=== PATIENT | female | born 1950 | race Caucasian/White ===

== ENCOUNTER 2020-03-08 16:50 | Emergency (ER) | payer MEDICARE, SELFPAY ==
[2020-03-08 17:02] VITALS: BP 132/72; PULSE 75; RESP 20; TEMP 36.2; O2SAT 100
--- NOTE | 2020-03-08 17:07 | ED.URI ---
HPI - URI/Sore Throat General Chief Complaint: Upper Respiratory Infection Stated Complaint: URI Time Seen by Provider: 03/08/20 17:11 Source: patient and RN notes reviewed Mode of arrival: ambulatory Limitations: no limitations History of Present Illness HPI Narrative: 69-year-old female presents with concern for chronic sinus problems. She reports several week to month history of sinus congestion. Reports in the last several days drainage has gotten worse with right-sided facial pain, headache, sneezing, constant rhinorrhea. She denies loss of sense of taste or smell, shortness of breath, fever, sore throat, ear pain. MD elicited complaint: nasal congestion Related Data Home Medications Medication Instructions Recorded Confirmed levothyroxine 25 mcg PO DAILY 04/07/19 03/08/20 pantoprazole 40 mg PO BID 04/07/19 03/08/20 rosuvastatin 10 mg PO DAILY 04/07/19 03/08/20 azelastine 205.5 mcg INTRANASAL DIRECTED 03/08/20 03/08/20 dicyclomine 10 mg PO DAILY 03/08/20 03/08/20 fluticasone propionate 50 mcg INTRANASAL DIRECTED 03/08/20 03/08/20 montelukast 10 mg PO DAILY 03/08/20 03/08/20 Allergies Allergy/AdvReac Type Severity Reaction Status Date / Time niacin Allergy Mild FLUSHING Verified 04/07/19 16:40 codeine AdvReac Unknown Nausea and Verified 04/07/19 16:40 Vomiting Review of Systems Review of Systems: Narrative: CONSTITUTIONAL: Denies malaise, chills, sweats, or fever. EYES: Denies visual changes, redness, or discharge. ENT: Reports rhinorrhea, congestion, sinus pain. Denies otalgia and sore throat. CARDIOVASCULAR: Denies chest pain, palpitations, or edema. RESPIRATORY: Reports cough. Denies dyspnea. GASTROINTESTINAL: Denies abdominal pain, nausea, vomiting, diarrhea SKIN: Denies rash or itching. MUSCULOSKELETAL: Denies myalgia. NEUROLOGIC: Reports headache. All systems reviewed & are unremarkable except as noted in HPI and below PMFSH Past Medical History Medical History (Updated 03/08/20 @ 17:26 by Nivia Orr NP) Fibromyalgia GERD (gastroesophageal reflux disease) Hypercholesterolemia Social History Social History Gender identity (if verbalized by the patient): Female Comments At time of signature, agree with nursing past medical, surgical, social and family history. There is no relevant family history pertinent to the presenting complaint Exam Narrative: Exam Narrative: GENERAL: Well-appearing, well-nourished, and in no acute distress. HEAD: Normocephalic EYES: PERRLA, conjunctivae clear ENT: Nares clear, turbinates edematous and erythematous, copious discharge, sinus tenderness. Mucous membranes moist. TM pearly murphy with dull light reflex bilaterally; no tragal tenderness. Oropharynx mildly erythematous without lesions. Tonsils not enlarged and without exudate, no drooling, no hoarseness, no trismus, uvula midline. NECK: Supple. No lymphadenopathy CHEST: Clear to auscultation, breath sounds equal. No wheezing, rhonchi, rales, or stridor. No respiratory distress, speaks in full sentences. HEART: Regular rate and rhythm. No murmur heard. SKIN: Warm, dry, no rash. NEURO: Alert and oriented x3. PSYCH: Normal mood and affect Course Course Emergency Course: Patient is aware of diagnosis, understands and agrees to treatment plan. Anticipatory guidance given. Patient agrees to follow-up as directed and is aware of reasons to seek care at the emergency department. Portions of this record may have been created with voice recognition software Vital Signs Vital signs: Vital Signs Temperature 97.2 F L 03/08/20 17:02 Pulse Rate 75 03/08/20 17:02 Respiratory Rate 20 03/08/20 17:02 Blood Pressure 132/72 03/08/20 17:02 Pulse Oximetry 100 03/08/20 17:02 Temperature 97.2 F L 03/08/20 17:02 Pulse Rate 75 03/08/20 17:02 Respiratory Rate 20 03/08/20 17:02 Blood Pressure 132/72 03/08/20 17:02 Pulse Oximetry 100 03/08/20 17:02 Reviewed. MDM - URI/Sore Throat
== END 2020-03-08 17:33 | disposition home or self-care (01) ==
PROVIDERS: Emergency Provider Nurse Practitioner; PCP Internal Medicine
DX: J32.9 Chronic sinusitis, unspecified (principal); M79.7 Fibromyalgia; K21.9 Gastro-esophageal reflux disease without esophagitis; E78.00 Pure hypercholesterolemia, unspecified
CPT/HCPCS: 99213; G0463

== ENCOUNTER 2020-10-03 18:55 | Emergency (ER) | payer MEDICARE, SELFPAY ==
--- NOTE | 2020-10-03 18:58 | ED.URI ---
HPI - URI/Sore Throat General Chief Complaint: Upper Respiratory Infection Stated Complaint: Congestion, Eye pain, coughing and sneezing Time Seen by Provider: 10/03/20 19:07 Source: patient and RN notes reviewed Mode of arrival: ambulatory Limitations: no limitations History of Present Illness HPI Narrative: 70-year-old female presents with concern for sinus pain, nasal congestion, eye pain, nasal drainage, postnasal drainage, coughing, sneezing. Reports trying multiple [id number] methods, regular daily allergy and sinus medicines with no relief. Reports general malaise. Reports history of chronic sinus infections. MD elicited complaint: nasal congestion Related Data Home Medications Medication Instructions Recorded Confirmed levothyroxine 25 mcg PO DAILY 04/07/19 10/03/20 pantoprazole 40 mg PO BID 04/07/19 10/03/20 rosuvastatin 10 mg PO DAILY 04/07/19 10/03/20 azelastine 205.5 mcg INTRANASAL DIRECTED 03/08/20 10/03/20 dicyclomine 10 mg PO DAILY 03/08/20 03/08/20 fluticasone propionate 50 mcg INTRANASAL DIRECTED 03/08/20 10/03/20 montelukast 10 mg PO DAILY 03/08/20 10/03/20 Allergies Allergy/AdvReac Type Severity Reaction Status Date / Time niacin Allergy Mild FLUSHING Verified 10/03/20 19:13 codeine AdvReac Unknown Nausea and Verified 10/03/20 19:13 Vomiting Review of Systems Review of Systems: Narrative: CONSTITUTIONAL: Reports malaise. Denies chills, sweats, or fever. EYES: Denies visual changes, redness, or discharge. Reports eye pain ENT: Reports rhinorrhea, congestion, sinus pain. Denies otalgia and sore throat. CARDIOVASCULAR: Denies chest pain, palpitations, or edema. RESPIRATORY: Reports cough. Denies dyspnea. GASTROINTESTINAL: Denies abdominal pain, nausea, vomiting, diarrhea SKIN: Denies rash or itching. MUSCULOSKELETAL: Denies myalgia. NEUROLOGIC: Reports headache. All systems reviewed & are unremarkable except as noted in HPI and below PMFSH Past Medical History Medical History (Updated 10/03/20 @ 19:15 by Nivia Orr NP) Fibromyalgia GERD (gastroesophageal reflux disease) Hypercholesterolemia Social History Social History Gender identity (if verbalized by the patient): Female Comments At time of signature, agree with nursing past medical, surgical, social and family history. There is no relevant family history pertinent to the presenting complaint Exam Narrative: Exam Narrative: GENERAL: Well-appearing, well-nourished, and in no acute distress. HEAD: Normocephalic EYES: PERRLA, conjunctivae clear, watery drainage ENT: Nares clear, turbinates edematous and erythematous, sinus tenderness. Mucous membranes moist. TM pearly murphy with dull light reflex bilaterally; no tragal tenderness. Oropharynx mildly erythematous without lesions. Tonsils not enlarged and without exudate, no drooling, no hoarseness, no trismus, uvula midline. NECK: Supple. No lymphadenopathy CHEST: Clear to auscultation, breath sounds equal. No wheezing, rhonchi, rales, or stridor. No respiratory distress, speaks in full sentences. HEART: Regular rate and rhythm. No murmur heard. SKIN: Warm, dry, no rash. NEURO: Alert and oriented x3. PSYCH: Normal mood and affect Course Course Emergency Course: Patient is aware of diagnosis, understands and agrees to treatment plan. Anticipatory guidance given. Patient agrees to follow-up as directed and is aware of reasons to seek care at the emergency department. Portions of this record may have been created with voice recognition software Vital Signs Vital signs: Reviewed. MDM - URI/Sore Throat MDM Narrative Medical decision making narrative: Differential diagnosis considered: Connelly virus, strep pharyngitis, allergic rhinitis, upper respiratory tract infection, sinusitis, rhinosinusitis, nasopharyngitis. viral pharyngitis, otitis media, otitis externa, pneumonia, bronchitis, viral cough syndrome, viral syndrome, and influenza. Exam findings show no acute con
[2020-10-03 19:02] VITALS: BP 141/75; PULSE 79; RESP 20; TEMP 36.7; O2SAT 100
== END 2020-10-03 19:20 | disposition home or self-care (01) ==
PROVIDERS: Emergency Provider Nurse Practitioner; PCP Internal Medicine
DX: J32.9 Chronic sinusitis, unspecified (principal); M79.7 Fibromyalgia; K21.9 Gastro-esophageal reflux disease without esophagitis; E78.00 Pure hypercholesterolemia, unspecified
CPT/HCPCS: 99213; G0463

== ENCOUNTER 2021-03-12 15:04 | Emergency (ER) | payer MEDICARE, SELFPAY ==
[2021-03-12 15:18] VITALS: BP 148/67; PULSE 78; RESP 16; TEMP 37.1; O2SAT 100
--- NOTE | 2021-03-12 16:27 | ED.URI ---
HPI - URI/Sore Throat General Chief Complaint: Upper Respiratory Infection Stated Complaint: head congestion cough Time Seen by Provider: 03/12/21 16:03 Source: patient and RN notes reviewed Mode of arrival: ambulatory Limitations: no limitations History of Present Illness HPI Narrative: Patient presents today complaining of 4-day history of nasal congestion and drainage, postnasal drip, ear fullness, watery eyes, cough. Denies fever or shortness of breath. Patient states, I have sinus all the time. Denies any history of sinus surgeries or procedures. She has been taking DayQuil, NyQuil as well as her Flonase and Advair. Reports the DayQuil and NyQuil have been helping somewhat. States that her PCP will not prescribe her antibiotics for sinus infections, so she comes to urgent care and feels better when she takes them. MD elicited complaint: cough and nasal congestion Related Data Home Medications Medication Instructions Recorded Confirmed pantoprazole 40 mg PO BID 04/07/19 10/03/20 azelastine 205.5 mcg INTRANASAL DIRECTED 03/08/20 10/03/20 dicyclomine 10 mg PO DAILY 03/08/20 10/03/20 fluticasone propionate 50 mcg INTRANASAL DIRECTED 03/08/20 10/03/20 fluticasone propion-salmeterol INHALATION 03/12/21 [Wixela Inhub] rosuvastatin mg 03/12/21 Allergies Allergy/AdvReac Type Severity Reaction Status Date / Time niacin Allergy Mild FLUSHING Verified 10/03/20 19:13 codeine AdvReac Unknown Nausea and Verified 10/03/20 19:13 Vomiting Review of Systems Review of Systems: CONSTITUTIONAL: Denies body aches, fever, chills, or sweats. EYES: Denies visual changes, redness, or discharge.+ Bilateral watery eyes ENT: Denies rhinorrhea, sore throat. + Congestion, postnasal drip, ear fullness CARDIOVASCULAR: Denies chest pain, palpitations, or edema. RESPIRATORY: Denies dyspnea.+ Cough GASTROINTESTINAL: Denies abdominal pain, nausea, vomiting, or diarrhea. GENITOURINARY: Denies dysuria or hematuria. SKIN: Denies rash, itching, or wounds. MUSCULOSKELETAL: Denies back pain, joint pain, or myalgia. NEUROLOGIC: Denies headache, numbness, tingling, or weakness. PSYCH: Denies depression or anxiety. [facility] Past Medical History Medical History Fibromyalgia GERD (gastroesophageal reflux disease) Hypercholesterolemia Social History Social History Gender identity (if verbalized by the patient): Female Comments At time of signature, I have reviewed and agree with nursing past medical, surgical, social and family history unless otherwise noted. Please see nursing chart for further information. There is no relevant family history pertinent to the presenting complaint Exam Narrative: GENERAL: Well-appearing, well-nourished, and in no acute distress. HEAD: Normocephalic, atraumatic. EYES: EOMI. No redness or drainage. Conjunctivae normal. ENT: Mucous membranes pink and moist. Nares clear. No rhinorrhea. TMs normal bilaterally. Throat normal. Uvula midline. NECK: Normal AROM. Supple. No lymphadenopathy. CHEST: No respiratory distress. Clear to auscultation. HEART: Regular rate and rhythm. No murmur appreciated. Normal peripheral pulses. EXTREMITIES: Normal range of motion. No edema. SKIN: Warm, dry, no rash. Capillary refill normal. Normal skin turgor. NEURO: No focal deficits. Alert and oriented x3. Gait steady. PSYCH: Normal affect. No signs of depression or anxiety. Course Vital Signs Vital signs: Vital Signs Temperature 98.7 F 03/12/21 15:18 Pulse Rate 78 03/12/21 15:18 Respiratory Rate 16 03/12/21 15:18 Blood Pressure 148/67 H 03/12/21 15:18 Pulse Oximetry 100 03/12/21 15:18 Temperature 98.7 F 03/12/21 15:18 Pulse Rate 78 03/12/21 15:18 Respiratory Rate 16 03/12/21 15:18 Blood Pressure 148/67 H 03/12/21 15:18 Pulse Oximetry 100 03/12/21 15:18
== END 2021-03-12 16:38 | disposition home or self-care (01) ==
PROVIDERS: Emergency Provider Nurse Practitioner; PCP Internal Medicine
DX: J06.9 Acute upper respiratory infection, unspecified (principal); M79.7 Fibromyalgia; K21.9 Gastro-esophageal reflux disease without esophagitis; E78.00 Pure hypercholesterolemia, unspecified
CPT/HCPCS: 99213; G0463

== ENCOUNTER 2021-08-19 11:33 | Emergency (ER) | payer MEDICARE, SELFPAY ==
[2021-08-19 11:38] VITALS: BP 122/65; PULSE 77; RESP 20; TEMP 37.1; O2SAT 100
--- NOTE | 2021-08-19 11:56 | ED.URI ---
HPI - URI/Sore Throat General Chief Complaint: Upper Respiratory Infection Stated Complaint: Sinus Pain Time Seen by Provider: 08/19/21 11:57 Source: patient, RN notes reviewed and old records reviewed Mode of arrival: ambulatory Limitations: no limitations History of Present Illness HPI Narrative: 71-year-old female who presents to [facility] with complaints of sinus congestion with nasal drainage, cough, feelings of frontal headache and sinus pressure which started on Saturday.She states that she was out in her yard Saturday during the day and proceeded that afternoon with watery eye with symptoms progressing. Patient has history of chronic sinus infections, allergies, and asthma, she takes Singulair,Azelastine nasal spray daily and has been taking NyQuil at bedtime due to cough. Patient reports that she has not had any acute shortness of breath and uses inhalers as prescribed. MD elicited complaint: sinus pain Pertinent past history: sinusitis and asthma Related Data Home Medications Medication Instructions Recorded Confirmed pantoprazole 40 mg PO BID 04/07/19 08/19/21 albuterol sulfate [ProAir HFA] 1 puff INHALATION QID 08/19/21 08/19/21 azelastine 2 spray INTRANASAL DAILY 08/19/21 08/19/21 fluticasone propion-salmeterol 1 inh INHALATION Q12H 08/19/21 08/19/21 [Wixela Inhub] levothyroxine 25 mcg PO DAILY 08/19/21 08/19/21 montelukast [Singulair] 10 mg PO DAILY 08/19/21 08/19/21 ropinirole 3 mg PO BID 08/19/21 08/19/21 Allergies Allergy/AdvReac Type Severity Reaction Status Date / Time niacin Allergy Mild FLUSHING Verified 08/19/21 11:50 codeine AdvReac Unknown Nausea and Verified 08/19/21 11:50 Vomiting Review of Systems Review of Systems: CONSTITUTIONAL: Denies fever, chills, or sweats. EYES: Denies visual changes, redness, or discharge. ENT: Positive rhinorrhea, congestion, no sore throat, or otalgia, sinus pressure CARDIOVASCULAR: Denies chest pain, palpitations, or edema. RESPIRATORY: Positive for cough denies any acute dyspnea. GASTROINTESTINAL: Denies abdominal pain, nausea, vomiting, or diarrhea. GENITOURINARY: Denies dysuria or hematuria. SKIN: Denies rash or itching. MUSCULOSKELETAL: Denies back pain, joint pain, or myalgia. NEUROLOGIC:Positive for frontal headache, no numbness, or weakness. PSYCHIATRIC: Denies anxiety or depression. All systems reviewed & are unremarkable except as noted in HPI and below PMFSH Past Medical History Medical History (Updated 08/20/21 @ 00:00 by Sarath Norwood) Asthma Fibromyalgia GERD (gastroesophageal reflux disease) Hypercholesterolemia Hypothyroidism Surgical History Surgical History (Updated 08/19/21 @ 18:51 by Carolina Maxwell NP) H/O cataract removal with insertion of prosthetic lens History of dilatation and curettage History of tonsillectomy Hx of cholecystectomy Social History Social History Gender identity (if verbalized by the patient): Female Comments At time of signature, agree with nursing past medical, surgical, social and family history. There is no relevant family history pertinent to the presenting complaint Exam Narrative: GENERAL: Well-appearing, well-nourished, and in no acute distress. HEAD: Normocephalic, atraumatic. EYES: PERRLA and EOMI. ENT: Nares red with clear to light yellow rhinorrhea no epistaxis. Mucous membranes moist.TM's normal with dull light reflex, throat light red with no lesions or exudates, no tonsils present, NECK: Supple.no lymphadenopathy CHEST: Clear to auscultation. No respiratory distress.cough, SAO2 100% on room air HEART: Regular rate and rhythm. No murmur heard. Normal peripheral pulses. ABDOMEN: Soft, nontender, nondistended, normal active bowel sounds. EXTREMITIES: Normal range of motion. No edema. SKIN: Warm, dry, no rash. NEURO: No focal deficits. Alert and oriented x3. Course Course Level of Care: Express Care Visit Vital Signs Vi
== END 2021-08-19 12:16 | disposition home or self-care (01) ==
PROVIDERS: Emergency Provider Registered Nurse; PCP Family Medicine
DX: J01.90 Acute sinusitis, unspecified (principal); J45.909 Unspecified asthma, uncomplicated; M79.7 Fibromyalgia; K21.9 Gastro-esophageal reflux disease without esophagitis; E78.00 Pure hypercholesterolemia, unspecified; E03.9 Hypothyroidism, unspecified; Z98.49 Cataract extraction status, unspecified eye; Z96.1 Presence of intraocular lens
CPT/HCPCS: 99213; G0463

== ENCOUNTER 2021-10-19 19:07 | Emergency (ER) | payer MEDICARE, SELFPAY ==
[2021-10-19 19:12] VITALS: BP 136/74; PULSE 68; RESP 18; TEMP 36.3; O2SAT 97
--- NOTE | 2021-10-19 19:16 | ED.SKABFB ---
HPI - Skin/Abscess/Foreign Bdy General Chief complaint: Skin/Abscess/Foreign Body Stated complaint: [place] on body Time Seen by Provider: 10/19/21 19:21 Source: patient Mode of arrival: ambulatory Limitations: no limitations History of Present Illness HPI narrative: 71-year-old presented for complaints of left forearm bruising and skin tear first noticed 3 days ago. Endorses carrying heavy bags which she believes caused the bruising, scraped her arm against a chair which caused the skin tear, and pt is concerned about the bruising. Denies any other concerns. MD complaint: rash Related Data Home Medications Medication Instructions Recorded Confirmed pantoprazole 40 mg tablet,delayed 40 mg PO BID 04/07/19 08/19/21 release azelastine 205.5 mcg (0.15 %) 2 spray intranasal DAILY 08/19/21 08/19/21 nasal spray fluticasone 500 mcg-salmeterol 50 1 inh inhalation Q12H 08/19/21 08/19/21 mcg/dose blistr powdr for inhalation (Wixela Inhub) levothyroxine 25 mcg tablet 25 mcg PO DAILY 08/19/21 08/19/21 montelukast 10 mg tablet 10 mg PO DAILY 08/19/21 08/19/21 (Singulair) ropinirole 3 mg tablet 3 mg PO BID 08/19/21 08/19/21 fluticasone 500 mcg-salmeterol 50 1 inh inhalation Q12H 10/19/21 10/19/21 mcg/dose blistr powdr for inhalation (Wixela Inhub) rosuvastatin 10 mg tablet 10 mg PO DAILY 10/19/21 10/19/21 Allergies Allergy/AdvReac Type Severity Reaction Status Date / Time niacin Allergy Mild FLUSHING Verified 10/19/21 19:22 codeine AdvReac Unknown Nausea and Verified 10/19/21 19:22 Vomiting Review of Systems Review of Systems: CONSTITUTIONAL: Denies body aches, fever, chills, or sweats. CARDIOVASCULAR: Denies chest pain, palpitations, or edema. RESPIRATORY: Denies dyspnea. GASTROINTESTINAL: Denies abdominal pain, nausea, vomiting, or diarrhea. SKIN: reports bruising and skin tear MUSCULOSKELETAL: Denies back pain, joint pain, or myalgia. NEUROLOGIC: Denies headache, numbness, tingling, or weakness. PMFSH Past Medical History Medical History Asthma Fibromyalgia GERD (gastroesophageal reflux disease) Hypercholesterolemia Hypothyroidism Surgical History Surgical History H/O cataract removal with insertion of prosthetic lens History of dilatation and curettage History of tonsillectomy Hx of cholecystectomy Social History Social History Gender identity (if verbalized by the patient): Female Comments At time of signature, I have reviewed and agree with nursing past medical, surgical, social and family history unless otherwise noted. Please see nursing chart for further information. There is no relevant family history pertinent to the presenting complaint Exam Narrative: GENERAL: Well-appearing EYES: conjunctivae clear, and EOMI. ENT: Mucous membranes moist. CHEST: Clear to auscultation. HEART: Regular rate and rhythm. SKIN: Warm, dry. LFA contusion approx 3cm diameter with forearm skin tear at ulnar aspect approx 0.5cm length dried/scabbed, no swelling or induration NEURO: Alert and oriented x3. PSYCH: Normal mood and affect Course Course Emergency Course: Patient is aware of diagnosis, understands and agrees to treatment plan. Anticipatory guidance given. Patient agrees to follow-up as directed and is aware of reasons to seek care at the emergency department. Portions of this record may have been created with voice recognition software Level of Care: Express Care Visit Vital Signs Vital signs: Vital Signs Temperature 97.3 F L 10/19/21 19:12 Pulse Rate 68 10/19/21 19:12 Respiratory Rate 18 10/19/21 19:12 Blood Pressure 136/74 10/19/21 19:12 Pulse Oximetry 97 10/19/21 19:12 Oxygen Delivery Room Air 10/19/21 19:12 Temperature 97.3 F L 10/19/21 19:24 Pulse Rate 68 10/19/21 19:24
[2021-10-19 19:24] VITALS: BP 136/74; PULSE 68; RESP 18; TEMP 36.3; O2SAT 97
== END 2021-10-19 19:31 | disposition home or self-care (01) ==
PROVIDERS: Emergency Provider Nurse Practitioner Family; PCP Family Medicine
DX: S51.812A Laceration without foreign body of left forearm, initial encounter (principal); W22.8XXA Striking against or struck by other objects, initial encounter; S50.12XA Contusion of left forearm, initial encounter; J45.909 Unspecified asthma, uncomplicated; M79.7 Fibromyalgia; K21.9 Gastro-esophageal reflux disease without esophagitis; E78.00 Pure hypercholesterolemia, unspecified; E03.9 Hypothyroidism, unspecified; Z98.49 Cataract extraction status, unspecified eye; Z96.1 Presence of intraocular lens
CPT/HCPCS: 99212; G0463

== ENCOUNTER 2021-11-29 14:26 | Observation (INO) | payer MEDICARE, SELFPAY ==
[2021-11-29] VITALS (10 sets, daily range): BP systolic 77–137; BP diastolic 43–70; PULSE 66–81; RESP 16–21; TEMP 36.7–36.9; O2SAT 97–100; BMI 30.2
--- NOTE | ~2021-11-29 | XR_ITS ---
EXAMINATION: XR chest 2V DATE: 11/29/2021 17:09 INDICATION: Syncope TECHNIQUE: PA and lateral views of the chest were obtained. COMPARISON: Chest radiograph dated 04/03/2014 FINDINGS: The lungs remain clear with no focal airspace opacities, pulmonary edema, pleural effusion or pneumot horax. The cardiomediastinal silhouette is normal. Radiographs thoracolumbar dextroscoliosis. Cholecy stectomy clips in the right upper quadrant. IMPRESSION: 1. No acute cardiopulmonary disease. Reviewed, dictated and finalized at location A.
--- NOTE | ~2021-11-29 | CT_ITS ---
EXAMINATION: CT brain wo con DATE: 11/29/2021 16:49 INDICATION: Syncopal episode, causing patient Oestreich head on ground. Episode of upper and lower ex tremity tremors TECHNIQUE: Computed tomography (CT) of the head was performed without intravenous contrast. The mA wa s adjusted according to patient size. Iterative reconstruction technique was employed. Exam dose: 60 5.33 mGy-cm total exam DLP. COMPARISON: None FINDINGS: Bilateral vertebral artery and carotid siphon internal carotid artery calcifications. There is nonspecific diminished attenuation of the cerebral white matter, likely due to chronic small vessel ischemic changes. No intracranial mass lesion or hemorrhage or cerebrovascular accident. No midline shift or mass effec t. No subdural or epidural hematoma. Mild cerebral and cerebellar volume loss. No fracture or bone destruction of the cranial vault. The mastoid air cells and included paranasal sinuses are normally developed and aerated. IMPRESSION: Cerebral atherosclerosis and chronic small vessel ischemic changes of cerebral white mat ter No acute intracranial finding or skull fracture Reviewed, dictated and finalized at Location A. Reviewed, dictated and finalized at location B. IMPRESSION: Cerebral atherosclerosis and chronic small vessel ischemic changes of cerebral white matter No acute intracranial finding or skull fracture
--- NOTE | ~2021-11-29 | US_ITS ---
EXAMINATION: US carotid duplex BI DATE: 11/30/2021 09:17 INDICATION: Syncope. TECHNIQUE: Grayscale, color Doppler, and pulsed Doppler images of the cervical carotid arteries were obtained. The degree of vessel stenosis is placed in one of the following categories: normal, <50%, 5 0-69%, >=70% but less than near-occlusion, near-occlusion, or total occlusion. Note that percent sten osis relative to normal distal artery lumen diameter is indirectly measured from velocity measurement s as described by Andrea, et al. Radiology 2003; 229:340-346. COMPARISON: chest CT 11/29/21 FINDINGS: RIGHT: The right common carotid artery (CCA) peak systolic velocity (PSV) is 122 cm/s. The right internal ca rotid artery (ICA) PSV is 104 cm/s. The right ICA end-diastolic velocity (EDV) is 31 cm/s. The right ICA/CCA PSV ratio is 1.1. Grayscale and color Doppler images yield an estimate of <50% diameter reduc tion from plaque in the ICA. There is antegrade flow in the right vertebral artery. LEFT: The left CCA PSV is 82 cm/s. The left ICA PSV is 98 cm/s. The left ICA EDV is 27 cm/s. The left ICA/C CA PSV ratio is 1.1. Grayscale and color Doppler images yield an estimate of <50% diameter reduction from plaque in the ICA. There is antegrade flow in the left vertebral artery. IMPRESSION: 1. <50% stenosis in the right internal carotid artery. 2. <50% stenosis in the left internal carotid artery. Reviewed, dictated and finalized at location A.
--- NOTE | ~2021-11-29 | CT_ITS ---
EXAMINATION: CTA chest PE protocol DATE: 11/29/2021 18:14 INDICATION: elevated dimer, syncope TECHNIQUE: Computed tomography angiography (CTA) of the chest was performed with 100 mL Omnipaque-350 intravenous contrast timed to evaluate the pulmonary arteries. Coronal maximum intensity projection 3D-reconstructions were created by the technologist. The dose-length product (DLP) was 310.80 mGy-cm. Automated exposure control and iterative reconstruction technique were employed. COMPARISON: Chest x-ray, same date. FINDINGS: Lung parenchyma and airways: Mild dependent atelectasis. Pleura: Unremarkable. Thoracic inlet, axillae and chest wall: Unremarkable. Thoracic aorta: Mild ectasia and arch calcification. Mediastinum: Dilated pulmonary arteries as can be seen with pulmonary arterial hypertension. Heart and pericardium: Normal. Coronary artery calcifications: Mild. Upper abdomen: No significant finding. Bones: No acute osseous finding. Pulmonary arteries: Study quality: Adequate. No pulmonary emboli detected. IMPRESSION: No CT evidence of acute pulmonary embolus. Reviewed, dictated and finalized at location K.
--- NOTE | 2021-11-29 14:30 | ECG_ITS ---
Measurements Intervals [place] Rate: 72 P: 36 CA: 172 QRS: 1 QRSD: 98 T: 31 QT: 360 QTc: 394 Interpretive Statements SINUS RHYTHM NO PREVIOUS ECG AVAILABLE FOR COMPARISON Electronically Signed On 11-29-2021 20:03:02 CDT by Claudia Steven M.D.
[2021-11-29 15:11] LABS: Basophils Absolute Auto 0.1 K/mm3 (0.0-0.1); Basophils Percent Auto 0.6 % (0.2-1.2); Eosinophils Percent Auto 0.2 % (0-4.4); Hematocrit 37.2 % (37.0-47.0); Hemoglobin 11.5 g/dL (12.0-15.0); Immature Granulocyte Absolute 0.04 K/mm3 (0.00-0.031); Immature Granulocyte Percent A 0.4 % (0-0.5); Lymphocytes Absolute Auto 0.97 K/mm3 (0.9-3.2); Lymphocytes Percent Auto 9.6 % (18.3-44.2); Mean Corpuscular HGB Conc 30.9 g/dl (32-36); Mean Corpuscular Hemoglobin 26.3 pg (26-34); Mean Corpuscular Volume 84.9 fl (80-100); Mean Platelet Volume 9.9 fl (7.4-10.4); Monocytes Absolute Auto 0.5 K/mm3 (0.1-0.6); Monocytes Percent Auto 5.4 % (2.6-8.5); Neutrophils Absolute Auto 8.5 K/mm3 (1.3-6.7); Neutrophils Percent Auto 83.8 % (45.5-73.1); Platelet Count Result 346 k/mm3 (150-375); Red Blood Count 4.38 M/mm3 (4.2-5.4); Red Cell Distribution Width 14.8 % (11.5-14.5); White Blood Count 10.1 K/mm3 (4.5-10.0)
[2021-11-29 15:16] LABS: Alanine Aminotransferase 35 U/L (6-35); Albumin Level 4.1 g/dL (3.5-5.1); Alkaline Phosphatase 81 U/L (38-126); Anion Gap 11 mmol/L (8-16); Aspartate Amino Transferase 39 U/L (14-36); Bilirubin,Total 0.5 mg/dL (0.2-1.3); Blood Urea Nitrogen 13 mg/dL (7-17); Calcium 9.3 mg/dL (8.4-10.2); Carbon Dioxide 25 mmol/L (22-30); Chloride 100 mmol/L (98-107); Estimated CRCL calculation 58 ml/min; Estimated Glomerular Filt Rate > 60; Glucose 112 mg/dL (65-110); Potassium 4.1 mmol/L (3.4-5.0); Sodium 136 mmol/L (137-145)
--- NOTE | 2021-11-29 15:21 | PC.NURSE ---
Pt had an episode of tremors to arms and head. Pt's eyes are open but she is not verbally responsive. Episode lasted approx 30 seconds. Pt is disoriented after episode.
--- NOTE | 2021-11-29 16:33 | ED.SYNCOPE ---
HPI - Syncope General Chief Complaint: Syncope Stated Complaint: syncope Time Seen by Provider: 11/29/21 15:58 Source: patient Mode of arrival: ambulatory Limitations: no limitations History of Present Illness HPI narrative: Patient is a 71-year-old female with a history of hypothyroidism, acid reflux, hyperlipidemia, presenting to the emergency department for evaluation following a syncopal event. 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 Patient states that she had felt unwell throughout the morning with nausea, but denied any significant abdominal pain. Patient states that she sat down because she thought that if perhaps she ate something it might help her to feel improved. Patient then was noted to have a witnessed syncopal event while sitting down in which she lost consciousness, falling to the floor. EMS was contacted, glucose normal on scene. Patient was confused, oriented to person only at the time of EMS arrival. Patient's mental status did improve in route and is alert and oriented to person, place, and time at the time of my assessment. She denied any prodromal symptoms such as chest pain, palpitations, lightheadedness or dizziness prior to the syncopal event. She denies history of this occurring in the past. She denies recent medication changes or recent illnesses. Patient denies any pain at the time of assessment. Patient states that she feels well. She reports mild nausea without abdominal pain. She denies recent car or air travel. No calf swelling or leg pain. She denies history of coagulopathy. No recent history of known COVID infection. Related Data Home Medications Medication Instructions Recorded Confirmed pantoprazole 40 mg tablet,delayed 40 mg PO BID 04/07/19 10/19/21 release azelastine 205.5 mcg (0.15 %) 2 spray intranasal DAILY 08/19/21 10/19/21 nasal spray fluticasone 500 mcg-salmeterol 50 1 inh inhalation Q12H 08/19/21 10/19/21 mcg/dose blistr powdr for inhalation (Wixela Inhub) levothyroxine 25 mcg tablet 25 mcg PO DAILY 08/19/21 10/19/21 montelukast 10 mg tablet 10 mg PO DAILY 08/19/21 10/19/21 (Singulair) ropinirole 3 mg tablet 3 mg PO BID 08/19/21 10/19/21 fluticasone 500 mcg-salmeterol 50 1 inh inhalation Q12H 10/19/21 10/19/21 mcg/dose blistr powdr for inhalation (Regine Inhub) rosuvastatin 10 mg tablet 10 mg PO DAILY 10/19/21 10/19/21 Allergies Allergy/AdvReac Type Severity Reaction Status Date / Time niacin Allergy Mild FLUSHING Verified 11/29/21 17:09 codeine AdvReac Unknown Nausea and Verified 11/29/21 17:09 Vomiting Review of Systems Review of Systems: CONSTITUTIONAL: Denies fever, chills, or sweats. EYES: Denies visual changes, redness, or discharge. ENT: Denies rhinorrhea, congestion, sore throat, or otalgia. CARDIOVASCULAR: Denies chest pain, palpitations, or edema. RESPIRATORY: Denies cough or dyspnea. GASTROINTESTINAL: Denies abdominal pain, vomiting or diarrhea, reports nausea GENITOURINARY: Denies dysuria or hematuria. SKIN: Denies rash or itching. MUSCULOSKELETAL: Denies back pain, joint pain, or myalgia. NEUROLOGIC: Denies headache, numbness, or weakness. 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 EYES: PERRLA and EOMI. ENT: Nares clear, no rhinorrhea or epistax
--- NOTE | 2021-11-29 16:40 | PC.NURSE ---
Pt to CT scan and XRAY via stretcher at this time.
[2021-11-29] MEDS: SODIUM CHLORIDE 0.9% IV 1,000 ML 999 ML IV CONT (17:11)
--- NOTE | 2021-11-29 17:30 | PM.IMHP ---
H&P: HPI History of Present Illness Date/Time: 11/29/21 17:30 Chief Complaint: Syncopal episode. Narrative: This is a very pleasant 71-year-old female with GERD, dyslipidemia, and hypothyroidism who presented to the ED via EMS from [facility] for evaluation after a syncopal episode. 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 Throughout the morning she felt a bit nauseated which she attributed to the fact that she did not eat breakfast though that is not unusual for her. It does not sound like she had much for lunch either. After the students left for the day, she went to the break room to have some crackers and a soda. She felt a bit lightheaded so she sat down in a chair. According to witnesses, she then lost consciousness, falling backwards and hitting her head on the ground. She was out for short period of time and was confused on EMS arrival. She became alert and oriented in route to the emergency department. Blood pressure is 127/52 on arrival and it has been stable aside from 1 outlying reading of 77/43 though I am not certain that is accurate. Orthostatic vital signs were obtained and were normal. Labs were reviewed and they were reassuring with nothing too significant though her D-dimer was slightly elevated. CTA of the chest showed no evidence of PE and her chest x-ray and brain CT also did not show any acute findings. She is feeling okay at the time my evaluation and she was hoping for discharge however due to unexplained syncope she is being admitted overnight for further evaluation. Review of Systems Review of Systems: Twelve systems were reviewed. No headache. No auditory visual changes. No vertigo. No focal weakness or paresthesias. No chest pain, pleuritic pain, palpitations, or sensations of racing heart. No cough or shortness of breath. She has not had any vomiting. No diarrhea. No dysuria. Except as documented, all other systems were reviewed and are negative. [facility] Past Medical History Medical History (Updated 11/29/21 @ 17:33 by Glendy Benitez PA-C) Asthma Fibromyalgia Gastroesophageal reflux disease Hypercholesterolemia Hypothyroidism Surgical History Surgical History (Updated 11/29/21 @ 17:32 by Glendy Benitez PA-C) History of cataract extraction with lens replacement History of cholecystectomy History of dilatation and curettage History of tonsillectomy Family History Family History Father Lung cancer Mother Social History Social History (Updated 11/29/21 @ 22:09 by Glendy Benitez PA-C) Social History: Surrogate medical decision maker: Travis Mckeon. Code status: Full code. Smoking status: Never smoker Alcohol intake: never Substance use: never Substance use type: does not use Additional living arrangements comments: The patient lives in her own home in [place]. 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 Spiritual care concerns: No Meds Home Medications and Allergies Home Medications Medication Instructions Recorded Confirmed Type pantoprazole 40 mg tablet,delayed 40 mg PO BID 04/07/19 11/29/21 History release azelastine 205.5 mcg (0.15 %) 2 spray intranasal HS 08/19/21 11/29/21 History nasal spray fluticasone 500 mcg-salmeterol 50 1 inh inhalation Q12H 08/19/21 11/29/21 History mcg/dose blistr powdr for inhalation (Wixela Inhub) levothyroxine 25 mcg tablet 25 mcg PO .TUES/THUR/SAT/SUN 08/19/21 11/29/21 History montelukast 10 mg tablet 10 mg PO HS 08/19/21 11/29/21 History (Singulair) ropinirole 3 mg tablet 3 mg PO HS 08/19/21 11/29/21 History rosuvastatin 10 mg tablet 10 mg PO DAILY 10/19/21 11/29/21 History fluticasone propionate 50 1 spray intranasal BID 11/29/21 11/29/21 History mcg/actuation nasal spray,suspension levothyroxine 25
[2021-11-29 17:52] LABS: D Dimer 0.73 ug/mL (<0.48)
--- NOTE | 2021-11-29 19:50 | ADMGEN ---
This patient, Chiara Lamb, was admitted to Medical Room 257-. Patient/family oriented to hospital policies and general routines including ID bracelet, bed and alarms, visiting hours, pain management, procedures, bathroom and other care routines, personal items, smoking policy, room service/diet, and visiting hours. Information on how to activate the Rapid Response Team has been discussed. Patient/Family are encouraged to report perceived risks to care and to ask questions if they do not understand what they are told or what they should do.
[2021-11-29 20:18] LABS: Troponin I < 0.012 ng/mL (0.000-0.034)
[2021-11-29] MEDS: PANTOPRAZOLE 40 MG TABLET PO (22:49)
[2021-11-29] MEDS: rOPINIRole HCL 1 MG TABLET 3 MG PO (22:50)
[2021-11-29] MEDS: MONTELUKAST SODIUM 10 MG TABLET PO (22:50)
[2021-11-29] MEDS: AZELASTINE HCL NASAL 0.1% 137 MCG/SPR 30 ML BTL 2 SPRAY NASAL (22:50)
[2021-11-29 23:38] LABS: Troponin I < 0.012 ng/mL (0.000-0.034)
[2021-11-30] VITALS (14 sets, daily range): BP systolic 125–145; BP diastolic 53–80; PULSE 70–84; RESP 18–20; TEMP 36.5–37.1; O2SAT 95–99
[2021-11-30] MEDS: LEVOTHYROXINE SODIUM 25 MCG TABLET PO (05:24)
[2021-11-30 05:38] LABS: Anion Gap 6 mmol/L (8-16); Blood Urea Nitrogen 8 mg/dL (7-17); Calcium 8.9 mg/dL (8.4-10.2); Carbon Dioxide 25 mmol/L (22-30); Chloride 107 mmol/L (98-107); Estimated CRCL calculation 82 ml/min; Estimated Glomerular Filt Rate > 60; Glucose 105 mg/dL (65-110); Potassium 3.6 mmol/L (3.4-5.0); Sodium 138 mmol/L (137-145)
[2021-11-30 06:36] LABS: Thyroid Stimulating Hormone Reflex 0.719 uIU/mL (0.465-4.68)
[2021-11-30] MEDS: ROSUVASTATIN 10 MG TABLET PO (09:26)
[2021-11-30] MEDS: FLUTICASONE PROPIONATE 0.05% NA SPR 16 GM BTL (*BKC) 1 SPRAY NASAL (09:26)
[2021-11-30] MEDS: PANTOPRAZOLE 40 MG TABLET PO ×2 (10:34→20:06)
[2021-11-30] MEDS: FLUTICASONE/SALMETEROL 230-21 MCG INHALER 1 PUFF 2 PUFF INHALATION ×2 (11:56→18:07)
--- NOTE | 2021-11-30 15:14 | PM.CNCAR ---
Assessment and Plan Assessment and plan (1) Syncope: Code(s): R55 - Syncope and collapse Status: Acute Assessment and Plan: Patient presents with syncope. Apparently had a prodrome, so vasovagal syncope is likely. No evidence of significant vascular or cardiac disease. Encouraged the patient to hydrate better in the morning since she usually skips breakfast and lunch Wonder she had a concussion since she has poor memory of the event recommended 2 week monitor looking for any sinus node dysfunction, Jaiden arrhythmias or pauses. My office will call the patient to set this up. (2) Hypercholesterolemia: Code(s): E78.00 - Pure hypercholesterolemia, unspecified Status: Acute Assessment and Plan: Takes rosuvastatin for hypercholesterolemia (3) Family history of premature CAD: Code(s): Z82.49 - Family history of ischemic heart disease and other diseases of the circulatory system Status: Acute Assessment and Plan: Mother of an MD at the age of 46; may put pt at risk of CV disease. Cont primary prevention History of Present Illness History of Present Illness Consult date/time: 11/30/21 15:14 Reason For Visit: syncope and collapse Narrative: Chiara Lamb is a 71 y.o. WF whom asked to see at the request of Dr. Michelle for advice and opinion regarding syncope and further management, in consultation. The patient Has very little memory of this event. She states she felt fine in the morning, did not eat any breakfast and had a few crackers for lunch which is her normal routine, did some walking, and then sat down to have a snack, and she does not know what happened next, waking up in this hospital. Other sources report that she complained of feeling ill in the morning with nausea and did not eat any breakfast and little lunch. After school finished, she sat down to have a snack and felt dizzy and nauseated then apparently passed out, falling backwards and tipping the chair, striking her head on the floor. On arrival EMS found the patient initially confused. Blood pressure 128/78 pulse 78. O2 sat 100%. Orthostatic vital signs were normal. No history of hypertension or diabetes; no known heart disease. Takes rosuvastatin for hyperlipidemia. No prior episodes of syncope. No chest pain or shortness of breath with activity or exertion. Review of Systems Constitutional: Constitutional: Denies fever(s) Cardiovascular: Cardiovascular: Denies chest pain, Reports pedal edema, Reports leg edema, Denies lightheadedness and Denies dyspnea Comments: Occasional edema Respiratory: Respiratory: Denies chest congestion and Denies dyspnea Gastrointestinal: Gastrointestinal: Denies abdominal pain and Denies hematochezia Musculoskeletal: Musculoskeletal: Reports no additional musculoskeletal complaints Integumentary/Breasts: Skin/Breast: Reports system reviewed and no additional complaints, except as docu Neurologic: Reports system reviewed and no additional complaints, except as documented, Denies behavioral changes and Denies confusion Psychiatric: Psychiatric: Denies behavioral changes and Denies confusion PMFSH Past Medical History Medical History Asthma Fibromyalgia Gastroesophageal reflux disease Hypercholesterolemia Hypothyroidism Surgical History Surgical History History of cataract extraction with lens replacement History of cholecystectomy History of dilatation and curettage History of tonsillectomy Family History Family History (Updated 11/30/21 @ 16:01 by Claudia Steven MD) Father Lung cancer cause of , age 57 Mother Acute myocardial infarction cause of , age 46. Was hospitalized for a while prior to her demise so not SCD Social History Social History (Reviewed
--- NOTE | 2021-11-30 15:50 | PM.DS ---
DS: Admitting Diagnosis Discharge Date November 30, 2021 Admitting Diagnosis Syncope DS: Discharge Diagnosis Discharge Diagnosis (1) Syncope: Code(s): R55 - Syncope and collapse Status: Acute Assessment and Plan: Workup unrevealing follow-up with Cardiology (2) Hypothyroidism: Code(s): E03.9 - Hypothyroidism, unspecified Status: Acute Assessment and Plan: Continue levothyroxine and check TSH. (3) Hypercholesterolemia: Code(s): E78.00 - Pure hypercholesterolemia, unspecified Status: Acute Assessment and Plan: Continue rosuvastatin. LFTs within normal limits. (4) Gastroesophageal reflux disease: Code(s): K21.9 - Gastro-esophageal reflux disease without esophagitis Status: Acute Assessment and Plan: No acute issues. Continue pantoprazole. DS: Summary Hospital Course Hospital Course: Patient is 71-year-old female who came in the hospital with syncope. Patient had no new medications. She was feeling fine prior to the incident. Workup here in the hospital's been unrevealing. Cardiology has seen the patient and said the patient can be discharged to follow-up with them to get a Holter monitor. Otherwise patient is stable and can be discharged. Time Spent with Patient Time attestation: Total time spent providing and/or coordinating discharge services: Exam Narrative: General: Well-developed female sitting up in bed no distress. Weight: 75 kg. BMI: 30.2. HEENT: Normocephalic, atraumatic. PERRL, EOMI. Sclera anicteric. Oral mucosa moist. Oropharynx clear. Neck: Supple. No JVD or obvious carotid bruits. Respiratory: Lungs are clear to auscultation bilaterally. Cardiovascular: Regular rate and rhythm with S1-S2. Gastrointestinal: Abdomen is soft, nontender, and nondistended with positive bowel sounds. Skin: Warm and dry. No rash or lesions on limited exam. Extremities: No cyanosis, clubbing, or edema. Radial and pedal pulses intact. Neurological: Alert and oriented x4 Cranial nerves 2-12 are grossly intact. Speech is clear. No facial asymmetry. Hand drug abuse social worker and foot pushes equal bilaterally. Gait steady. No gross focal deficits to casual conversation. Psychiatric: Pleasant and cooperative with normal mood and affect. Judgment and insight intact. DS: Data Data Completed and Pending Labs on day of discharge: Labs from last 24 hours 11/30/21 11/30/21 11/29/21 05:14 05:14 23:01 D-Dimer Sodium 138 Potassium 3.6 Chloride 107 Carbon Dioxide 25 Anion Gap 6 L BUN 8 D Creatinine 0.50 L Estim Creat Clear Calc 82 Estimated GFR > 60 Glucose 105 Calcium 8.9 Magnesium 2.0 Troponin I < 0.012 TSH (Reflex) 0.719 11/29/21 11/29/21 19:50 14:50 D-Dimer 0.73 H Sodium Potassium Chloride Carbon Dioxide Anion Gap BUN Creatinine Estim Creat Clear Calc Estimated GFR Glucose Calcium Magnesium Troponin I < 0.012 TSH (Reflex) Discharge Plan Discharge Attending physician on discharge: Sudhakar Michelle Consulting providers: Ila Kwok Discharging Clinician: Sudhakar Michelle Patient Disposition: Home, Self-Care Activity: no preference Diet: as tolerated Patient Instructions: Antibiotic Form Stand Alone Forms: General Discharge Information Follow-up/Referrals: Ila Kwok MD [Physician] - Discharge Medications: Continued pantoprazole 40 mg tablet,delayed release (DR/EC) 40 mg PO BID rosuvastatin 10 mg Tablet 10 mg PO DAILY ropinirole 3 mg Tablet 3 mg PO HS levothyroxine 25 mcg Tablet 25 mcg PO .TUES/THUR/SAT/SUN fluticasone propion-salmeterol [Wixela Inhub] 500-50 mcg/dose Blister With Device 1 inh INHALATION Q12H montelukast [Singulair] 10 mg Tablet 10 mg PO HS azelastine 205.5 mcg (0.15 %) [place],Non-Aerosol 2 spray INTRANASAL HS levothyr
[2021-11-30] MEDS: rOPINIRole HCL 1 MG TABLET 3 MG PO (20:06)
[2021-11-30] MEDS: MONTELUKAST SODIUM 10 MG TABLET PO (20:06)
[2021-11-30] MEDS: AZELASTINE HCL NASAL 0.1% 137 MCG/SPR 30 ML BTL 2 SPRAY NASAL (20:09)
--- NOTE | 2021-11-30 22:14 | ECHO_ITS ---
Patient Info Name: Chiara Lamb Age: 71 years : 1950 Gender: Female Ht: 62 in Wt: 165 lbs BSA: 1.84 m2 HR: 76 bpm BP: 125 / 53 mmHg Exam Date: 11/30/2021 9:53 AM Exam Location: [facility] Pulmonary Patient Status: Inpatient Admit Date: 11/29/2021 Staff Ordering Physician: Glendy Benitez PA-C Rack Production Worker: Chad Duarte RDCS Attending Provider: Ahmet Jhaveri MD Referring Physician: Emmanuel SALMERON; Exam Type: CA echo doppler color flow Study Info Indications R55 - Syncope and collapse Complete two-dimensional, color flow and Doppler transthoracic echocardiogram is performed. Summary 1. Complete two-dimensional, color flow and Doppler transthoracic echocardiogram is performed. 2. Left ventricular systolic function is normal, estimated at 60-65%. 3. The left ventricular diastolic function is indeterminate. 4. There is moderate mitral valve calcification. 5. There is trace mitral valve regurgitation. Left Ventricle Left ventricular chamber dimension is normal. Left ventricular systolic function is normal, estimated at 60-65%. There is no increased left ventricular wall thickness. Left ventricular septal wall motion is normal. The left ventricular diastolic function is indeterminate. Right Ventricle Right ventricular chamber dimension is normal. Right ventricular systolic function is normal. Left Atria Left atrial chamber dimension is mildly enlarged. Right Atria Right atrial chamber dimension is normal. Atrial Septum Intact interatrial septum visualized by color flow imaging. Aortic Valve The aortic valve is trileaflet. There is no aortic valve sclerosis. There is no aortic valve stenosis. There is no aortic valve regurgitation. Pulmonic Valve The pulmonic valve is normal. There is no pulmonic valve stenosis. There is no pulmonic regurgitation. Mitral Valve The mitral valve has normal leaflets. There is no mitral valve stenosis. There is trace mitral valve regurgitation. There is moderate mitral valve calcification. Tricuspid Valve The tricuspid valve leaflets are normal. There is no significant tricuspid valve stenosis. There is no tricuspid valve regurgitation. Pericardium/Pleural The pericardium appears normal. There is no pericardial effusion. Inferior Vena Cava Normal inferior vena cava with >50% collapse upon inspiration consistent with normal right atrial pressure, 5 mmHg. Aorta The aortic root size at the sinus of Valsalva is normal. The prox ascending aorta size is normal. Left Ventricular Outflow Tract Name Value Normal LVOT 2D LVOT Diameter 2.0 cm LVOT Doppler LVOT Peak Gradient 10 mmHg LVOT Mean Gradient 6 mmHg LVOT VTI 31 cm LVOT VTI/AV VTI Ratio 1.0 LVOT Stroke Volume 96 ml LVOT CO 7.5 l/min LVOT CI 4.1 l/min/m2 Mitral Valve
[2021-12-01] VITALS (10 sets, daily range): BP systolic 128–146; BP diastolic 48–59; PULSE 66–78; RESP 16–18; TEMP 37.1; O2SAT 95
[2021-12-01] MEDS: LEVOTHYROXINE SODIUM 50 MCG TABLET PO (06:17)
[2021-12-01] MEDS: ROSUVASTATIN 10 MG TABLET PO (08:28)
[2021-12-01] MEDS: PANTOPRAZOLE 40 MG TABLET PO (08:28)
[2021-12-01] MEDS: FLUTICASONE PROPIONATE 0.05% NA SPR 16 GM BTL (*BKC) 1 SPRAY NASAL (08:28)
[2021-12-01] MEDS: FLUTICASONE/SALMETEROL 230-21 MCG INHALER 1 PUFF 2 PUFF INHALATION (09:01)
--- NOTE | 2021-12-01 11:32 | PM.DS ---
DS: Admitting Diagnosis Discharge Date December 01, 2021 Admitting Diagnosis Syncope, concussion DS: Discharge Diagnosis Discharge Diagnosis (1) Syncope: Code(s): R55 - Syncope and collapse Status: Acute Assessment and Plan: Workup unrevealing follow-up with Cardiology (2) Hypothyroidism: Code(s): E03.9 - Hypothyroidism, unspecified Status: Acute Assessment and Plan: Continue levothyroxine and check TSH. (3) Hypercholesterolemia: Code(s): E78.00 - Pure hypercholesterolemia, unspecified Status: Acute Assessment and Plan: Continue rosuvastatin. LFTs within normal limits. (4) Gastroesophageal reflux disease: Code(s): K21.9 - Gastro-esophageal reflux disease without esophagitis Status: Acute Assessment and Plan: No acute issues. Continue pantoprazole. DS: Summary Hospital Course Hospital Course: Patient is a 71-year-old female who had a syncopal episode while working. She had also hit her head at that time. Workup was unrevealing. Cardiology was consulted recommended outpatient Holter monitor this will have to be approved by her insurance. Her discharge was held yesterday on November 30, 2021 because she was a little bit confused. After speaking with the patient today she does appear to be better she was able to tell me where she was at the date she still little foggy on nature of her fall but that is to be expected since she did have a head injury at the time. She was also able to tell me her address and she said she does have friends 2nd check on her regularly at home. She is to not drive and is fully aware of this. Otherwise she is to follow up with Cardiology. Time Spent with Patient Time attestation: Total time spent providing and/or coordinating discharge services: Exam Narrative: General: Well-developed female sitting up in bed no distress. Weight: 75 kg. BMI: 30.2. HEENT: Normocephalic, atraumatic. PERRL, EOMI. Sclera anicteric. Oral mucosa moist. Oropharynx clear. Neck: Supple. No JVD or obvious carotid bruits. Respiratory: Lungs are clear to auscultation bilaterally. Cardiovascular: Regular rate and rhythm with S1-S2. Gastrointestinal: Abdomen is soft, nontender, and nondistended with positive bowel sounds. Skin: Warm and dry. No rash or lesions on limited exam. Extremities: No cyanosis, clubbing, or edema. Radial and pedal pulses intact. Neurological: Alert and oriented x4 Cranial nerves 2-12 are grossly intact. Speech is clear. No facial asymmetry. Hand deflector operator and foot pushes equal bilaterally. Gait steady. No gross focal deficits to casual conversation. Psychiatric: Pleasant and cooperative with normal mood and affect. Judgment and insight intact. Discharge Plan Discharge Attending physician on discharge: Sudhakar Michelle Consulting providers: Ila Kwok Discharging Clinician: Sudhakar Michelle Patient Disposition: Home, Self-Care Activity: no preference Diet: as tolerated Discharge Instructions: [facility] Cardiology will call you to roller picker a 2 week monitor. This will have to be precertified by your insurance, so it won't happen this week, but I hope we can get this done next week. Call Dr. Steven's office if any questions, problems or need directions. [facility] Cardiology: [phone]. Address: [address] [place] [address] [address], [address], [place] [address]. Our office is on the ground floor next to the [facility]. Patient Instructions: Antibiotic Form Stand Alone Forms: General Discharge Information Follow-up/Referrals: Ila Kwok MD [Physician] - Discharge Medications: Continued pantoprazole 40 mg tablet,delayed release (DR/EC) 40 mg PO BID rosuvastatin 10 mg Tablet 10 mg PO DAILY ropinirole 3 mg Tablet 3 mg PO HS levothyroxine 25 mcg Tablet 25 mcg PO .TUES/THUR/SAT/SUN fluticasone
== END 2021-12-01 14:10 | disposition home or self-care (01) ==
LOC: ANHED 16:37 → ANH2MED 11-30 13:29
PROVIDERS: Physician Assistant; Admitting Provider Internal Medicine; Emergency Provider Emergency Medicine; PCP Family Medicine; Visit Provider Chiropractor
DX: R55 Syncope and collapse (principal); E03.9 Hypothyroidism, unspecified; E78.00 Pure hypercholesterolemia, unspecified; J45.909 Unspecified asthma, uncomplicated; K21.9 Gastro-esophageal reflux disease without esophagitis; R41.0 Disorientation, unspecified; M79.7 Fibromyalgia; E78.5 Hyperlipidemia, unspecified; R11.0 Nausea; S09.8XXA Other specified injuries of head, initial encounter; W18.39XA Other fall on same level, initial encounter; Y93.89 Activity, other specified; Y92.219 Unspecified school as the place of occurrence of the external cause; I67.2 Cerebral atherosclerosis; R90.82 White matter disease, unspecified; I34.8 Other nonrheumatic mitral valve disorders; Z79.51 Long term (current) use of inhaled steroids; Z79.899 Other long term (current) drug therapy; Z82.49 Family history of ischemic heart disease and other diseases of the circulatory system
CPT/HCPCS: 36415; 70450; 71046; 71275; 80048; 80053; 83735; 84443; 84484; 85025; 85380; 93005; 93306; 93880; 94640; 96360; 96361; 99285; A9270; G0378; J7030; Q9967

== ENCOUNTER 2023-01-21 11:33 | Observation (INO) | payer OTHER, MEDICARE, SELFPAY ==
[2023-01-21] VITALS (9 sets, daily range): BP systolic 114–135; BP diastolic 59–72; PULSE 62–72; RESP 16–18; TEMP 36.4–37; O2SAT 94–100; BMI 26.5
--- NOTE | 2023-01-21 | ECHO_ITS ---
Patient Info Name: Chiara Lamb Age: 72 years : 1950 Gender: Female Ht: 64 in Wt: 154 lbs BSA: 1.79 m2 HR: 72 bpm BP: 132 / 65 mmHg Heart Rhythm: Sinus Rhythm Technical Quality: Fair Exam Date: 01/21/2023 3:47 PM Exam Location: [facility] Patient Status: Inpatient Admit Date: 01/21/2023 Staff Ordering Physician: Josefina Bustos APRN Black Leather Trimmer: Heather Potter RDCS Attending Provider: Sudhakar Michelle MD Referring Physician: Akash GONZALEZ; Exam Type: CA echo dop bubble study w con Study Info Indications R55 - Syncope and collapse Complete two-dimentional, color flow and Doppler transthoracic echocardiogram is performed with agitated saline and with contrast to opacify the left ventricle and to improve the delineation of the left ventricle endocardial borders. Contrast/Agitated Saline Contrast/Ag. Saline: Definity Amount: 2.00 ml Administered By: Sera Alvarez Existing IV Access: Yes IV Access Condition: patent with no signs of infiltration Contrast/Ag. Saline: Agitated Saline Amount: 20.00 ml Administered By: Sera Alvarez Existing IV Access: Yes IV Access Condition: patent with no signs of infiltration Summary 1. Normal left ventricular size and thickness, with normal left ventricular systolic function. Ejection fraction 63%. Grade 2 diastolic dysfunction is present. 2. No significant valve stenosis or regurgitation but there is moderate mitral annular calcification. 3. No evidence of intracardiac shunting by bubble study during normal respiration and Valsalva maneuver. 4. Rhythm is probably normal sinus rhythm. 5. Technically difficult study. Definity echo contrast used. Left Ventricle Left ventricular chamber dimension is normal. Left ventricular systolic function is normal, estimated at 60-65%. There is no increased left ventricular wall thickness. Left ventricular septal wall motion is normal. The left ventricular diastolic function is grade II diastolic dysfunction. Right Ventricle Right ventricular chamber dimension is normal. Right ventricular systolic function is normal. Left Atria Left atrial chamber dimension is normal. Right Atria Right atrial chamber dimension is normal. Aortic Valve The aortic valve is trileaflet. There is no aortic valve sclerosis. There is no aortic valve stenosis. There is no aortic valve regurgitation. Pulmonic Valve The pulmonic valve is normal. There is no pulmonic valve stenosis. There is no pulmonic regurgitation. Mitral Valve The mitral valve has normal leaflets. There is no mitral valve stenosis. There is trace mitral valve regurgitation. There is moderate mitral valve calcification. Tricuspid Valve The tricuspid valve leaflets are normal. There is no significant tricuspid valve stenosis. There is trace tricuspid valve regurgitation. Mild pulmonary hypertension, estimated pulmonary arterial systolic pressure is 39 mmHg. Pericardium/Pleural The pericardium appears normal. There is no pericardial effusion. Inferior Vena Cava Normal inferior vena cava with >50% collapse upon inspiration consistent with Empty right atrial pressure, 10 mmHg. Aorta The aortic root size at the sinus of Valsalva is normal. The prox ascending aorta size is normal. Left Ventricular Outflow Tract Name Value Normal
--- NOTE | ~2023-01-21 | MR_ITS ---
EXAMINATION: MR brain/brain stem wo con DATE: 01/21/2023 18:07 INDICATION: TIA TECHNIQUE: Magnetic resonance imaging (MRI) of the brain and brainstem was performed without intraven ous contrast. Sequences included sagittal and axial T1-weighted SE, axial diffusion-weighted FS EPI A SSET, axial T2*-weighted GRE, axial T2-weighted FLAIR Propeller, and axial T2-weighted Propeller. Pos tcontrast axial and coronal T1-weighted SE was obtained. Apparent diffusion coefficient (ADC) maps we re created. COMPARISON: CT brain, same date. FINDINGS: No abnormal restricted diffusion to suggest acute ischemic infarct. No MRI evidence of hemorrhage or extra-axial collection. No suspicious foci of susceptibility to suggest prior intraparenchymal hemorr jameson. Scattered foci of white matter hyperintensity, likely representing mild small vessel ischemic d isease. Mild generalized parenchymal volume loss. The basilar cisterns are patent. Flow voids are pre served. Paranasal sinuses are within normal limits. Bilateral lens replacements. Globes and orbital c ontents are otherwise within normal limits. IMPRESSION: No acute intrarenal process. Specifically, no diffusion restriction to suggest presence of acute infa rct. Reviewed, dictated and finalized at location K. IMPRESSION: No acute intrarenal process. Specifically, no diffusion restriction to suggest presence of acute infarct.
--- NOTE | ~2023-01-21 | CT_ITS ---
EXAMINATION: CT brain wo con DATE: 01/21/2023 14:00 INDICATION: Seizure versus syncope. Head trauma. TECHNIQUE: Computed tomography (CT) of the head was performed without intravenous contrast. Sagittal and coronal reconstructions were performed. The mA was adjusted according to patient size. Iterative reconstruction technique was employed. The dose-length product was 605.33 mGy-cm. COMPARISON: head CT dated 11/29/2021 FINDINGS: No fracture. No acute intracranial hemorrhage, acute infarction or abnormal extra axial fluid collect ion. There is minimal white matter hypoattenuation the deep white matter consistent with chronic smal l vessel ischemic disease. Symmetric prominence of the sulci consistent with mild age-appropriate dif fuse cerebral volume loss. Ventricles are normal and symmetric. No mass/mass effect. Changes of bilat eral intraocular lens replacement. The orbits, paranasal sinuses and mastoid air cells are normal. In tracranial calcified cerebral atherosclerosis is noted. IMPRESSION: 1. No fracture or acute intracranial process. 2. Age-related changes including mild diffuse volume loss and minimal scattered white matter hypoatte nuation consistent with chronic small vessel ischemic disease. Reviewed, dictated and finalized at location A. IMPRESSION: 1. No fracture or acute intracranial process. 2. Age-related changes including mild diffuse volume loss and minimal scattered white matter hypoattenuation consistent with chronic small vessel ischemic dis ease.
--- NOTE | ~2023-01-21 | XR_ITS ---
EXAMINATION: XR chest 1V 01/21/2023 14:04 INDICATION: Syncope PROCEDURE: AP portable chest COMPARISON: 11/29/2021 FINDINGS: The lungs are clear. The cardiomediastinal silhouette is within normal limits. There are no pleural effusions. There is no pneumothorax suspected. IMPRESSION: 1: NO ACUTE CARDIOPULMONARY DISEASE. Reviewed, dictated and finalized at location B.
--- NOTE | ~2023-01-21 | US_ITS ---
EXAMINATION: US carotid duplex BI DATE: 01/22/2023 09:27 INDICATION: Syncope TECHNIQUE: Grayscale, color Doppler, and pulsed Doppler images of the cervical carotid arteries were obtained. The degree of vessel stenosis is placed in one of the following categories: normal, <50%, 5 0-69%, >=70% but less than near-occlusion, near-occlusion, or total occlusion. Note that percent sten osis relative to normal distal artery lumen diameter is indirectly measured from velocity measurement s as described by Andrea, et al. Radiology 2003; 229:340-346. Notes: Normal: Peak systolic velocity <125 centimeters/sec and no plaque <50%. Peak systolic velocity <125 ( EDV <40; ICA/CCA PSV ratio <2.0; used these factors only a tandem lesions or low cardiac output or co ntralateral disease) 50-69 %: PSV 125-230 (EDV 40-100; ratio 2-4) >= 70% but less than near occlusion: PSV greater than 230 (EDV > 100; ratio> 4.0) Near Occlusion: PSV that is variable; markedly narrowed lumen Occlusion: Absent flow on color/spectral Doppler and no lumen on murphy scale. COMPARISON: None. FINDINGS: RIGHT: The right common carotid artery (CCA) peak systolic velocity (PSV) is cm/s. The right internal caroti d artery (ICA) PSV is 106 cm/s. The right ICA end-diastolic velocity (EDV) is 95 cm/s. The right ICA/ CCA PSV ratio is 0.9. The external carotid artery (ECA) PSV is 168 cm/s. There is antegrade flow in t he right vertebral artery. LEFT: The left CCA PSV is 110 cm/s. The left ICA PSV is 87 cm/s. The left ICA EDV is 27 cm/s. The left ICA/ CCA PSV ratio is 0.8. The ECA PSV is 138 cm/s. There is antegrade flow in the left vertebral artery. IMPRESSION: 1. Less than 50% stenosis in the right internal carotid artery by sonographic criteria. 2. Less than 50% stenosis in the left internal carotid artery by sonographic criteria. Reviewed, dictated and finalized at location L. IMPRESSION: 1. Less than 50% stenosis in the right internal carotid artery by sonographic coco morel. 2. Less than 50% stenosis in the left internal carotid artery by sonographic mario cartwright.
--- NOTE | 2023-01-21 12:57 | ECG_ITS ---
Measurements Intervals [place] Rate: 65 P: 36 DE: 170 QRS: -7 QRSD: 93 T: 29 QT: 377 QTc: 395 Interpretive Statements SINUS RHYTHM LOW QRS VOLTAGE OTHERWISE WITHIN NORMAL LIMITS COMPARED TO ECG 11/29/2021 16:43:16 NO SIGNIFICANT CHANGES Electronically Signed On 01-21-2023 15:00:06 CDT by Sudhakar Harris M.D.
--- NOTE | 2023-01-21 12:58 | ED.SEIZURE ---
HPI - Seizure General Chief Complaint: Seizure Stated Complaint: syncope episode Time Seen by Provider: 01/21/23 12:00 History of Present Illness HPI Narrative: Patient is a 72-year-old female presenting after an episode of unresponsiveness. 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 States that she went to the break room to have a snack and she was sitting down when the next and she remembers she was on the floor. She was reportedly found facedown unresponsive by another staff member. Unclear how long she had been down or if there is seizure activity. No tongue biting or bladder or bowel incontinence. Patient states that she did not sleep well last night so she was feeling a bit sleepy this morning but otherwise had no symptoms. No lightheadedness, diaphoresis, nausea, chest pain, palpitations, shortness of breath. No leg swelling. Currently, her only complaint is feeling tired. No recent infectious symptoms. No further complaints. Related Data Home Medications Medication Instructions Recorded Confirmed pantoprazole 40 mg tablet,delayed 40 mg PO BID 04/07/19 01/21/23 release azelastine 205.5 mcg (0.15 %) 2 spray intranasal HS 08/19/21 01/21/23 nasal spray fluticasone 500 mcg-salmeterol 50 1 inh inhalation Q12H 08/19/21 01/21/23 mcg/dose blistr powdr for inhalation (Wixela Inhub) levothyroxine 25 mcg tablet 25 mcg PO .TU/THUR/SAT/SUN 08/19/21 01/21/23 montelukast 10 mg tablet 10 mg PO HS 08/19/21 01/21/23 (Singulair) ropinirole 3 mg tablet 3 mg PO HS 08/19/21 01/21/23 rosuvastatin 10 mg tablet 10 mg PO DAILY 10/19/21 01/21/23 fluticasone propionate 50 1 spray intranasal BID 11/29/21 01/21/23 mcg/actuation nasal spray,suspension levothyroxine 25 mcg tablet 50 mcg PO .MON/WED/Sat11/29/21 01/21/23 geriatric multivitamin-min 1 tablet PO DAILY 01/21/23 01/21/23 loratadine 10 mg tablet (Claritin) 10 mg PO DAILY 01/21/23 01/21/23 Allergies Allergy/AdvReac Type Severity Reaction Status Date / Time niacin Allergy Mild FLUSHING Verified 01/21/23 11:42 codeine AdvReac Unknown Nausea and Verified 01/21/23 11:42 Vomiting Review of Systems Review of Systems: All systems reviewed & are unremarkable except as noted in HPI and below PMFSH Past Medical History Medical History Asthma Fibromyalgia Gastroesophageal reflux disease Hypercholesterolemia Hypothyroidism Surgical History Surgical History History of cataract extraction with lens replacement History of cholecystectomy History of dilatation and curettage History of tonsillectomy Family History Family History Father Lung cancer cause of , age 57 Mother Acute myocardial infarction cause of , age 46. Was hospitalized for a while prior to her demise so not SCD Social History Social History (Updated 01/21/23 @ 14:59 by Josefina Bustos APRN) Social History: Surrogate medical decision maker: Travis Mckeon [phone], 2nd contact, friend Nicolle Santamaria, Code status: Full code. Smoking status: Never smoker Alcohol intake: never Substance use: never Substance use type: does not use Lack of Transportation: No Lack of Food: Never True Current Housing: I Have Housing Concerned About Future Housing: No Difficulty Paying Gas/Electric Bills: No Difficulty Paying for Meds: No Currently Unemployed: No Education: Bachelor's Degree Difficulty w/ Childcare or Family Care: No Living arrangements: alone Additional living arrangements comments: The patient lives in her own home in [place]. She has never and has no children. 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 Gender identity (if verbalized by th
[2023-01-21 13:08] LABS: Basophils Absolute Auto 0.1 K/mm3 (0.0-0.1); Basophils Percent Auto 1.2 % (0.2-1.2); Eosinophils Absolute Auto 0.1 K/mm3 (0-0.3); Eosinophils Percent Auto 1.3 % (0-4.4); Hematocrit 41.9 % (37.0-47.0); Immature Granulocyte Absolute 0.03 K/mm3 (0.00-0.031); Immature Granulocyte Percent A 0.4 % (0-0.5); Lymphocytes Absolute Auto 1.29 K/mm3 (0.9-3.2); Mean Corpuscular Hemoglobin 28.3 pg (26-34); Mean Corpuscular Volume 91.1 fl (80-100); Monocytes Absolute Auto 0.6 K/mm3 (0.1-0.6); Monocytes Percent Auto 8.3 % (2.6-8.5); Neutrophils Absolute Auto 5.4 K/mm3 (1.3-6.7); Neutrophils Percent Auto 71.8 % (45.5-73.1); Platelet Count Result 275 k/mm3 (150-375); Red Cell Distribution Width 17.5 % (11.5-14.5); White Blood Count 7.6 K/mm3 (4.5-10.0)
[2023-01-21] MEDS: SODIUM CHLORIDE 0.9% IV 1,000 ML 999 ML IV CONT (13:08)
[2023-01-21 13:18] LABS: Lactic Acid Reflex 0.8 mmol/L (0.7-2.0)
[2023-01-21 13:19] LABS: Alanine Aminotransferase 29 U/L (6-35); Alkaline Phosphatase 72 U/L (38-126); Anion Gap 5 mmol/L (8-16); Aspartate Amino Transferase 33 U/L (14-36); Bilirubin,Total 0.6 mg/dL (0.2-1.3); Blood Urea Nitrogen 12 mg/dL (7-17); Calcium 9.7 mg/dL (8.4-10.2); Carbon Dioxide 27 mmol/L (22-30); Chloride 107 mmol/L (98-107); Estimated CRCL calculation 54 ml/min; Estimated Glomerular Filt Rate > 60; Glucose 104 mg/dL (65-110); Lipase 70 U/L (23-300); Magnesium 2.1 mg/dL (1.6-2.3); Potassium 3.5 mmol/L (3.4-5.0); Sodium 139 mmol/L (137-145)
[2023-01-21 13:20] LABS: INR 0.9; Prothrombin Time 12.5 Seconds (11.1-14.7)
[2023-01-21 13:21] LABS: Partial Thromboplastin Time 28.5 SECONDS (22.3-36.8)
[2023-01-21 13:30] LABS: Troponin I < 0.012 ng/mL (0.000-0.034)
[2023-01-21 14:33] LABS: Free T4 Free Thyroxine Reflex 1.35 ng/dL (0.78-2.19)
[2023-01-21 14:45] LABS: Appearance Urine Turbid (Clear); Bacteria Urine None Seen /hpf; Bilirubin Urine Negative (Negative); Blood Urine Negative (Negative); Color Urine Yellow (Yellow); Glucose Urine UA Negative (Negative); Ketones Urine Negative (Negative); Leukocyte Esterase Ur Negative LEU/UL (Negative); Nitrate Urine Negative (Negative); Non Pathogenic Casts 0-2; Protein Urine Negative (Negative); RBC Urine 0-2 /hpf (0-2); Specific Grav Ur 1.008 (1.001-1.035); Squamous Epithelial Cell Urine None seen /hpf (Few); Urobilinogen Urine 0.2 mg/dL (<2.0); WBC Urine 0-5 /hpf
--- NOTE | 2023-01-21 14:47 | PM.IMHP ---
H&P: HPI History of Present Illness Date/Time: 01/21/23 14:47 Chief Complaint: Syncopal episode Narrative: This is a 72-year-old female with a past medical history of GERD, dyslipidemia, and hypothyroidism who presented to the ER today after having a syncopal episode at work. 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 The last thing she remembers is sitting in a chair in the break room and then waking up on the floor with staff surrounding her. +LOC. EMS was called and she was transferred to [place] for further evaluation. Overall her labs appear normal with exception of a low TSH of 0.310 and normal T4, total T3 is pending. UA is negative. Chest x-ray negative and her CT head shows age-related changes with mild diffuse volume loss and scattered white matter hypoattenuation consistent with chronic small-vessel ischemic disease. Her vitals are stable. She did receive 1 L fluid bolus. When I evaluate the patient I mention a recent hospitalization last November for similar episode in which she was worked up with Cardiology and has to wear a Holter monitor. The patient does not recall this admission. And she is unsure if she ever were the heart monitor. When obtaining her history she also says she has never had any surgeries, however the record indicates otherwise. I asked her what she had done yesterday and she reports that she went discharge like usual and tried to get 12,000 steps in. Besides this episode today she denies headache, dizziness, chest pain, shortness a breath, sore throat, runny nose, abdominal pain, nausea, vomiting, diarrhea and constipation. She is wanting to discharge home however have explained that we need to observe her overnight and complete a workup with Neurology for possible stroke versus seizure. Patient is reluctantly agreeable. She lives alone at home and has never been and has no children. Her uncle Travis Mckeon is her emergency contact as well as her friend Nicolle Santamaria. She does not normally follow with primary care provider but rather receives her care from urgent care as needed. Given the patient's acute confusion I reviewed her prescription records and found that she follows with Dr. Lily Carrera at [facility]. I called and spoke with the nurse at the office and she was last seen July of this year. She does have a documented seizure disorder listed but patient did not recall this. She is supposed to be taking Keppra 500 mg twice a day. If the pharmacy records are correct the patient has not filled this prescription since July of this year. Review of Systems Review of Systems: All systems reviewed & are unremarkable except as noted in HPI and below PMFSH Past Medical History Medical History Asthma Fibromyalgia Gastroesophageal reflux disease Hypercholesterolemia Hypothyroidism Surgical History Surgical History History of cataract extraction with lens replacement History of cholecystectomy History of dilatation and curettage History of tonsillectomy Family History Family History Father Lung cancer cause of , age 57 Mother Acute myocardial infarction cause of , age 46. Was hospitalized for a while prior to her demise so not SCD Social History Social History (Updated 01/21/23 @ 14:59 by Josefina Bustos APRN) Social History: Surrogate medical decision maker: Travis Mckeon [phone], 2nd contact, friend Nicolle Delgadillor, Code status: Full code. Smoking status: Never smoker Alcohol intake: never Substance use: never Substance use type: does not use Lack of Transportation: No Lack of Food: Never True Curr
[2023-01-21 14:48] LABS: Add Urine Microscopic? YES
[2023-01-21 15:33] LABS: Total Triiodothyronine (T3) 1.35 NG/ML (0.97-1.69)
[2023-01-21] MEDS: levETIRAcetam 500 MG TABLET PO ×2 (15:41→20:20)
[2023-01-21] MEDS: PERFLUTREN LIPID MICROSPHERES 1.5 ML VIAL DILUTED TO 10 ML TOTAL VOLUME IV PUSH (16:00)
--- NOTE | 2023-01-21 16:35 | IVDEFINITY ---
Prior to administration of IV Definity the patient was educated on the risks and benefits of the imaging enhancing agent including potential adverse side effects. The patient verbalized understanding. Allergies were verified. No exclusion criteria were identified and at least one of the following inclusion criteria were met: 1) physician request, 2) patient technically difficult to image (per the [place] Society of Echocardiography guidelines of two or more segments not discernable within the apical view), or 3) questionable left ventricular function. ?
[2023-01-21 16:37] LABS: Troponin I < 0.012 ng/mL (0.000-0.034)
[2023-01-21 19:15] LABS: Troponin I < 0.012 ng/mL (0.000-0.034)
[2023-01-21] MEDS: MONTELUKAST SODIUM 10 MG TABLET PO (20:20)
[2023-01-22 00:04] VITALS: PULSE 67
[2023-01-22 04:00] VITALS: PULSE 73
[2023-01-22] MEDS: LEVOTHYROXINE SODIUM 25 MCG TABLET PO (05:31)
[2023-01-22 05:33] VITALS: BP 132/58; PULSE 72; RESP 16; TEMP 36.9; O2SAT 97
[2023-01-22 05:42] LABS: Basophils Absolute Auto 0.1 K/mm3 (0.0-0.1); Basophils Percent Auto 1.5 % (0.2-1.2); Eosinophils Absolute Auto 0.2 K/mm3 (0-0.3); Eosinophils Percent Auto 2.4 % (0-4.4); Hematocrit 38.3 % (37.0-47.0); Hemoglobin 12.1 g/dL (12.0-15.0); Immature Granulocyte Absolute 0.02 K/mm3 (0.00-0.031); Immature Granulocyte Percent A 0.3 % (0-0.5); Lymphocytes Absolute Auto 1.77 K/mm3 (0.9-3.2); Lymphocytes Percent Auto 23.4 % (18.3-44.2); Mean Corpuscular HGB Conc 31.6 g/dl (32-36); Mean Corpuscular Hemoglobin 28.5 pg (26-34); Mean Corpuscular Volume 90.3 fl (80-100); Monocytes Absolute Auto 0.8 K/mm3 (0.1-0.6); Monocytes Percent Auto 10.2 % (2.6-8.5); Neutrophils Absolute Auto 4.7 K/mm3 (1.3-6.7); Neutrophils Percent Auto 62.2 % (45.5-73.1); Platelet Count Result 257 k/mm3 (150-375); Red Blood Count 4.24 M/mm3 (4.2-5.4); Red Cell Distribution Width 17.4 % (11.5-14.5); White Blood Count 7.6 K/mm3 (4.5-10.0)
[2023-01-22 06:01] LABS: Alanine Aminotransferase 24 U/L (6-35); Albumin Level 3.5 g/dL (3.5-5.1); Alkaline Phosphatase 60 U/L (38-126); Anion Gap 6 mmol/L (8-16); Aspartate Amino Transferase 29 U/L (14-36); Bilirubin,Total 0.7 mg/dL (0.2-1.3); Blood Urea Nitrogen 9 mg/dL (7-17); Calcium 8.9 mg/dL (8.4-10.2); Carbon Dioxide 20 mmol/L (22-30); Chloride 114 mmol/L (98-107); Cholesterol 155 mg/dL (0-200); Estimated CRCL calculation 62 ml/min; Estimated Glomerular Filt Rate > 60; Glucose 94 mg/dL (65-110); HDL Direct 49 mg/dL; Magnesium 2.1 mg/dL (1.6-2.3); Potassium 3.6 mmol/L (3.4-5.0); Sodium 140 mmol/L (137-145); Triglycerides 127 mg/dL (<150)
[2023-01-22 06:12] LABS: LDL Cholesterol Direct 78 mg/dL
[2023-01-22 08:00] VITALS: PULSE 74
--- NOTE | 2023-01-22 08:27 | PM.IMPN ---
Progress Note: A&P Assessment and Plan (1) Syncope: Code(s): R55 - Syncope and collapse Status: Acute Assessment and Plan: Unwitnessed syncope with collapse. Seizure vs TIA vs vasovagal syncope vs dementia Positive LOC, unsure if she struck her head CT head negative in the ER Patient does not recall events Admitted last November for similar complaint. She received a cardiac workup which was negative. She was diagnosed with questionable vasovagal syncope. She was to wear a Holter monitor for 2 weeks as an outpatient. Patient does not recall these events. Carotid duplex ordered MRI brain ordered Echo with bubble study ordered Vitamin B12, hemoglobin A1c, and lipid panel ordered. TSH is already has resulted Neuro consult and recommendations are appreciated EEG Called Dr Lily Napier at [facility] and Mrs Lamb does follow with her office. She has a documented seizure disorder and is supposed to be taking Keppra 500 mg PO BID. According to pharmacy records the prescription was last filled in July of this year. (2) Hypercholesterolemia: Code(s): E78.00 - Pure hypercholesterolemia, unspecified Status: Acute Assessment and Plan: Stable on rousvastatin check am lipids (3) Hypothyroidism: Code(s): E03.9 - Hypothyroidism, unspecified Status: Acute Assessment and Plan: On Levothyroxine 25 mcg PO T//Sat/Sat and 50 mcg // TSH low 0.310 Free T4 normal Total T3 pending (4) Gastroesophageal reflux disease: Code(s): K21.9 - Gastro-esophageal reflux disease without esophagitis Status: Acute Assessment and Plan: Stable takes protonix daily (5) Amnesia memory loss: Code(s): R41.3 - Other amnesia Status: Acute Assessment and Plan: Does not recall fall, positive LOC Patient also does not recall a hospitalization last November for similar symptoms. She was hospitalized for 2 days and worked up with Cardiology. She was asked or Holter monitor at discharge. The patient cannot recall this admission and she is unsure if she has ever wore a heart monitor. Subjective Date/time seen: 01/22/23 08:27 Interval history: This is a 72-year-old female with a past medical history of GERD, dyslipidemia, and hypothyroidism who presented to the ER today after having a syncopal episode at work.? 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 The last thing she remembers is sitting in a chair in the break room and then waking up on the floor with staff surrounding her. +LOC. EMS was called and she was transferred to [place] for further evaluation.? Overall her labs appear normal with exception of a low TSH of 0.310 and normal T4, total T3 is pending.? UA is negative.? Chest x-ray negative and her CT head shows age-related changes with mild diffuse volume loss and scattered white matter hypoattenuation consistent with chronic small-vessel ischemic disease.? Her vitals are stable.? She did receive 1 L fluid bolus. When I evaluate the patient I mention a recent hospitalization last November for similar episode in which she was worked up with Cardiology and has to wear a Holter monitor.? The patient does not recall this admission.? And she is unsure if she ever were the heart monitor.? When obtaining her history she also says she has never had any surgeries, however the record indicates otherwise.? I asked her what she had done yesterday and she reports that she went discharge like usual and tried to get 12,000 steps in.? Besides this episode today she denies headache, dizziness, chest pain, shortness a breath, sore throat, runny nose, abdominal pain, nausea, vomiting, diarrhea and constipation.? She is wanting to discharge home however have explained that we need to observe her overnight and complete a workup with Neurology for poss
[2023-01-22] MEDS: PANTOPRAZOLE 40 MG TABLET PO (08:30)
[2023-01-22] MEDS: levETIRAcetam 500 MG TABLET PO (08:30)
[2023-01-22] MEDS: ENOXAPARIN 40 MG/0.4 ML SYRINGE SUB-Q (08:30)
[2023-01-22] MEDS: ROSUVASTATIN 10 MG TABLET PO (08:30)
[2023-01-22 10:23] LABS: Hemoglobin A1C 5.2 % (<5.7)
--- NOTE | 2023-01-22 10:30 | WPDNEUROLOGY ---
Neurology EEG Report General Information Date of Study: 01/22/23 TEST eeg DIAGNOSIS seizures CONDITION OF RECORDING awake drowsy and sleep EEG NUMBER [id number] CLINICAL HISTORY patient reports she has been having episodes of losing consciousness. No warning before it happens and feels fine afterwards. EEG DESCRIPTION Basic resting occipital frequency consists of well-organized low to medium voltage 9 to 11 hertz per 2nd alpha admixed with low-voltage 15 to 18 hertz per 2nd beta. During drowsiness low-voltage beta activity seen diffusely admixed with waxing and waning posterior alpha rhythm. Bilateral symmetrical sleep activity seen during sleep. Hyperventilation not done. Photic stimulation not done. Non paroxysmal. Nonfocal. Nonlateralizing. IMPRESSION Normal record, clinical correlation Juwan day.
--- NOTE | 2023-01-22 11:12 | WPDNEURCNPN ---
Assessment and Plan Assessment and plan (1) Seizures: Code(s): R56.9 - Unspecified convulsions Status: Acute Plan 1. Seizure disorder 2. Rule out the possible cardiac dysrhythmia or as TIA, Doppler study of the carotid is negative with less than 50% stenosis bilaterally, MRI of the brain is normal with no evidence of stroke or space-occupying lesion, routine EEG is normal, but again she needs to be continue on the anticonvulsants Consult date: 01/22/23 HPI: Chiara Lamb is a 72 year old female admitted to the hospital subsequent to an episode of unresponsiveness reportedly she went to the break room and was sitting on a no extent she remembered she was on the floor she was reportedly found face down unresponsive and unclear how long she had been down there there was no signs of tongue biting or bladder or bowel dysfunction she did not sleep the night before very well but there was no history of any other symptomatology. She has been taking multiple medications as charted including ropinirole 3 mg p.o. HS levothyroxine 50 micro g on a Saturday and Saturday topiramate 50 mg twice a day she is allergic to niacin and codeine and also carries the diagnosis of myalgia she has never a smoker never alcohol drink initial exam in the emergency room was nonfocal vital signs were normal EKG was normal with no atrial fibrillation troponins were undetectable the lactic acid was normal to initial CT scan revealed no bleed he was admitted for overnight observation and her EEG this morning is normal at present she has gone for the MRI of the brain,Came back and examined and discussed. Review of Systems Review of Systems: All systems reviewed & are unremarkable except as noted in HPI and below [facility] Past Medical History Medical History Asthma Fibromyalgia Gastroesophageal reflux disease Hypercholesterolemia Hypothyroidism Surgical History Surgical History History of cataract extraction with lens replacement History of cholecystectomy History of dilatation and curettage History of tonsillectomy Family History Family History Father Lung cancer cause of , age 57 Mother Acute myocardial infarction cause of , age 46. Was hospitalized for a while prior to her demise so not SCD Social History Social History (Updated 01/21/23 @ 14:59 by Josefina Bustos, [employer]) Social History: Surrogate medical decision maker: Travis Mckeon [phone], 2nd contact, friend Nicolle Santamaria, Code status: Full code. Smoking status: Never smoker Alcohol intake: never Substance use: never Substance use type: does not use Lack of Transportation: No Lack of Food: Never True Current Housing: I Have Housing Concerned About Future Housing: No Difficulty Paying Gas/Electric Bills: No Difficulty Paying for Meds: No Currently Unemployed: No Education: Bachelor's Degree Difficulty w/ Childcare or Family Care: No Living arrangements: alone Additional living arrangements comments: The patient lives in her own home in [place]. She has never and has no children. 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 Gender identity (if verbalized by the patient): Female Spiritual care concerns: No Meds Home Medications and Allergies Home Medications Medication Instructions Recorded Confirmed Type pantoprazole 40 mg tablet,delayed 40 mg PO BID 04/07/19 01/21/23 History release azelastine 205.5 mcg (0.15 %) 2 spray intranasal HS 08/19/21 01/21/23 History nasal spray fluticasone 500 mcg-salmeterol 50 1 inh inhalation Q12H 08/19/21 01/21/23 History mcg/dose blistr powdr for inhalation (Wixela Inhub) levothyrox
[2023-01-22 12:00] VITALS: PULSE 82
--- NOTE | 2023-01-22 13:09 | PM.DS ---
DS: Admitting Diagnosis Discharge Date 01/22 Admitting Diagnosis syncope DS: Summary Hospital Course Hospital Course: This is a 72-year-old female with a past medical history of GERD, dyslipidemia, and hypothyroidism who presented to the ER today after having a syncopal episode at work.? 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 The last thing she remembers is sitting in a chair in the break room and then waking up on the floor with staff surrounding her. +LOC. EMS was called and she was transferred to [facility] for further evaluation.? Overall her labs appear normal with exception of a low TSH of 0.310 and normal T4, total T3 is pending.? UA is negative.? Chest x-ray negative and her CT head shows age-related changes with mild diffuse volume loss and scattered white matter hypoattenuation consistent with chronic small-vessel ischemic disease.? Her vitals are stable.? She did receive 1 L fluid bolus. When I evaluate the patient I mention a recent hospitalization last November for similar episode in which she was worked up with Cardiology and has to wear a Holter monitor.? The patient does not recall this admission.? And she is unsure if she ever were the heart monitor.? When obtaining her history she also says she has never had any surgeries, however the record indicates otherwise.? I asked her what she had done yesterday and she reports that she went discharge like usual and tried to get 12,000 steps in.? Besides this episode today she denies headache, dizziness, chest pain, shortness a breath, sore throat, runny nose, abdominal pain, nausea, vomiting, diarrhea and constipation.? She is wanting to discharge home however have explained that we need to observe her overnight and complete a workup with Neurology for possible stroke versus seizure.? Patient is reluctantly agreeable.? She lives alone at home and has never been and has no children.? Her uncle Travis Mckeon is her emergency contact as well as her friend Nicolle Santamaria.? She does not normally follow with primary care provider but rather receives her care from urgent care as needed. Given the patient's acute confusion I reviewed her prescription records and found that she follows with Dr. Lily Carrera at [facility].? I called and spoke with the nurse at the office and she was last seen July of this year.? She does have a documented seizure disorder listed but patient did not recall this.? She is supposed to be taking Keppra 500 mg twice a day.? If the pharmacy records are correct the patient has not filled this prescription since July of this year. Interval history, 01/22-Chiara is seen sitting on edge of the bed no acute distress. She does not remember me from yesterday as admitting her. We discussed results her echo, carotid Dopplers, MRI, and EEG. Per Neurology she is okay to discharge today she will go home on Keppra 500 mg twice a day. She also should not drive for at least 6 months. She has been educated on the risk associated with driving and recurrent seizure disorder. She is obviously pretty distressed about this as she is her own caregiver with no close family. She needs to work to be able to afford her living and pay bills. Reassurance was provided for the difficult situation however was reinforced that driving could be dangerous to herself and others. I also discussed with her that I have some concerns that she may be presenting with early-onset dementia. She does not remember her hospitalization from a year ago for similar presentation. She also talks about forgetting that she has gone to the movies with her friends. I encouraged her to follow-up with Dr. Napier this next week and to discuss these concerns for new onset dementia. Status at Discharge Cognitive/behavioral status at discharge: A&O x4 Time Spent with Patient Time attestation: Total time
== END 2023-01-22 15:18 | disposition home or self-care (01) ==
LOC: ANHED 12:31 → ANH2MED 22:32
PROVIDERS: Nurse Practitioner Acute Care; Admitting Provider Chiropractor; Emergency Provider Emergency Medicine; PCP Family Medicine; Visit Provider Internal Medicine
DX: R55 Syncope and collapse (principal); J45.909 Unspecified asthma, uncomplicated; M79.7 Fibromyalgia; K21.9 Gastro-esophageal reflux disease without esophagitis; E78.5 Hyperlipidemia, unspecified; E03.9 Hypothyroidism, unspecified; R41.3 Other amnesia; I51.89 Other ill-defined heart diseases; Z79.51 Long term (current) use of inhaled steroids; Z79.899 Other long term (current) drug therapy
CPT/HCPCS: 36415; 70450; 70551; 71045; 80053; 80061; 81001; 82607; 83036; 83605; 83690; 83735; 84439; 84443; 84480; 84484; 85025; 85610; 85730; 93005; 93880; 95816; 96361; 96372; 96374; 96375; 99285; A9270; C8929; G0378; J1650; J7030; Q9957

== ENCOUNTER 2023-10-30 19:34 | Emergency (ER) | payer MEDICARE, SELFPAY ==
[2023-10-30 19:43] VITALS: BP 133/60; PULSE 73; RESP 16; TEMP 37.4; O2SAT 99
--- NOTE | 2023-10-30 19:58 | ED.URI ---
HPI - URI/Sore Throat General Chief Complaint: Upper Respiratory Infection Stated Complaint: exposed to covid Time Seen by Provider: 10/30/23 19:50 Source: patient and RN notes reviewed Mode of arrival: ambulatory Limitations: no limitations History of Present Illness HPI Narrative: 73-year-old female presented for complaint of COVID exposure. Pt endorses headache, sinus pressure/congestion, cough. States these symptoms started prior to her exposure 3 days ago. Denies sob, wheezing, n/v/d. MD elicited complaint: cough Related Data Home Medications Medication Instructions Recorded Confirmed pantoprazole 40 mg tablet,delayed 40 mg PO BID 04/07/19 10/30/23 release azelastine 205.5 mcg (0.15 %) 2 spray intranasal HS 08/19/21 10/30/23 nasal spray fluticasone 500 mcg-salmeterol 50 1 inh inhalation Q12H 08/19/21 10/30/23 mcg/dose blistr powdr for inhalation (Wixela Inhub) levothyroxine 25 mcg tablet 25 mcg PO .TUES/THUR/SAT/SUN 08/19/21 10/30/23 montelukast 10 mg tablet 10 mg PO HS 08/19/21 10/30/23 (Singulair) ropinirole 3 mg tablet 3 mg PO HS 08/19/21 10/30/23 rosuvastatin 10 mg tablet 10 mg PO DAILY 10/19/21 10/30/23 fluticasone propionate 50 1 spray intranasal BID 11/29/21 10/30/23 mcg/actuation nasal spray,suspension levothyroxine 25 mcg tablet 50 mcg PO .MON/SAT/Sat11/29/21 10/30/23 geriatric multivitamin-min 1 tablet PO DAILY 01/21/23 10/30/23 loratadine 10 mg tablet (Claritin) 10 mg PO DAILY 01/21/23 10/30/23 Allergies Allergy/AdvReac Type Severity Reaction Status Date / Time niacin Allergy Mild FLUSHING Verified 10/30/23 19:50 codeine AdvReac Unknown Nausea and Verified 10/30/23 19:50 Vomiting Review of Systems Review of Systems: CONSTITUTIONAL: Denies malaise, chills, sweats, fever EYES: Denies visual changes, redness, or discharge ENT: Reports rhinorrhea, congestion, sinus pain, denies otalgia, sore throat CARDIOVASCULAR: Denies chest pain, palpitations, edema RESPIRATORY: Reports cough, post nasal drainage. Denies dyspnea GASTROINTESTINAL: Denies abdominal pain, nausea, vomiting, diarrhea SKIN: Denies rash or itching MUSCULOSKELETAL: denies myalgia NEUROLOGIC: Reports headache PMFSH Past Medical History Medical History Asthma Fibromyalgia Gastroesophageal reflux disease Hypercholesterolemia Hypothyroidism Surgical History Surgical History History of cataract extraction with lens replacement History of cholecystectomy History of dilatation and curettage History of tonsillectomy Family History Family History Father Lung cancer cause of , age 57 Mother Acute myocardial infarction cause of , age 46. Was hospitalized for a while prior to her demise so not SCD Social History Social History Social History: Surrogate medical decision maker: Travis Mckeon [phone], 2nd contact, friend Nicolle Santamaria, Code status: Full code. Smoking status: Never smoker Alcohol intake: never Substance use: never Substance use type: does not use Lack of Transportation: No Lack of Food: Never True Current Housing: I Have Housing Concerned About Future Housing: No Difficulty Paying Gas/Electric Bills: No Difficulty Paying for Meds: No Currently Unemployed: No Education: Bachelor's Degree Difficulty w/ Childcare or Family Care: No Living arrangements: alone Additional living arrangements comments: The patient lives in her own home in [place]. She has never and has no children. 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 Gender identity (if verbalized by the patient): Female Spiritual care con
== END 2023-10-30 20:00 | disposition home or self-care (01) ==
PROVIDERS: Emergency Provider Nurse Practitioner Family; PCP Internal Medicine Infectious Disease
DX: U07.1 COVID-19 (principal); J45.909 Unspecified asthma, uncomplicated; M79.7 Fibromyalgia; K21.9 Gastro-esophageal reflux disease without esophagitis; E78.00 Pure hypercholesterolemia, unspecified; E03.9 Hypothyroidism, unspecified
CPT/HCPCS: 87426; 99211; G0463